=== PATIENT | male | born 1955 | race Two or more races ===

== ENCOUNTER → 2021-12-13 | Emergency (ER) | payer SELFPAY ==
[~2021-12-13] VITALS: Ht 162.6 cm; Wt 130.0 kg
[~2021-12-13] MED LIST: LIDOCAINE 1% HCL (LOCAL ANESTH.) INJ 20ML MDV ID ONE; SODIUM CHLORIDE 0.9% 1,000 ML IV ONE; TETANUS-DIPTH-ACEL PERTUSSIS 0.5ML SYR Tdap IM ONE
[2021-12-13 14:00] VITALS: BP 126/65
== END | disposition home or self-care (01) ==
LOC: EDBD → ER 12:05 → EEVIPCON 12:05
DX: S01.112A Laceration without foreign body of left eyelid and periocular area, initial encounter (principal); Y08.89XA Assault by other specified means, initial encounter; Y93.89 Activity, other specified; Y92.89 Other specified places as the place of occurrence of the external cause; Y99.8 Other external cause status
CPT/HCPCS: 70450; 71045; 72125; 90471; 90715; 96360; 99284; J2001; J7030